=== PATIENT | female | born 1955 | race Caucasian/White ===

== ENCOUNTER → 2021-01-22 | Outpatient (REF) | payer BC ==
[2021-01-22 12:51] LABS: BASO # 0.1 10^3/uL (0.0-0.2); BASO % 0.8 % (0.0-1.0); EOS # 0.3 10^3/uL (0.0-0.5); EOS % 3.2 % (0.0-3.0); HEMATOCRIT 33.9 % (36.0-47.0); HEMOGLOBIN 11.3 g/dl (12.0-15.5); LYMPH # 1.7 10^3/uL (1.5-5.0); LYMPH % 19.1 % (24.0-44.0); MEAN CORPUSCULAR HGB CONC 33.3 g/dl (32.0-36.5); MEAN CORPUSCULAR VOLUME 93.1 fl (80.0-96.0); MONO # 0.9 10^3/uL (0.0-0.8); MONO % 9.5 % (2.0-8.0); NEUTROPHILS # 6.1 10^3/uL (1.5-8.5); NEUTROPHILS % 66.9 % (36.0-66.0); PLATELET COUNT, AUTOMATED 470 10^3/uL (150-450); RED BLOOD COUNT 3.64 10^6/uL (4.00-5.40); WHITE BLOOD COUNT 9.1 10^3/uL (4.0-10.0)
[2021-01-22 14:16] LABS: ALBUMIN 3.8 GM/DL (3.2-5.2); BILIRUBIN,TOTAL 0.5 MG/DL (0.2-1.0); CALCIUM LEVEL 10.1 MG/DL (8.8-10.2); CHOLESTEROL RISK RATIO 2.833 (<5); CREATININE FOR GFR 1.07 MG/DL (0.55-1.30); GLOMERULAR FILTRATION RATE 54.6 (>45); POTASSIUM SERUM 4.5 MEQ/L (3.5-5.1); THYROID STIMULATING HORMONE 0.726 uIU/ML (0.358-3.740); TOTAL 25(OH) VITAMIN D 38.6 NG/ML (30.0-100.0)
== END ==
LOC: M SFHCADAM 11:19
PROVIDERS: ATTEND Physician Assistant Medical
DX: I10 Essential (primary) hypertension (principal)

== ENCOUNTER → 2021-01-26 | Outpatient (REF) | payer BC ==
[2021-01-26 14:23] LABS: ALBUMIN 3.6 GM/DL (3.2-5.2); BILIRUBIN,TOTAL 0.5 MG/DL (0.2-1.0); CALCIUM LEVEL 9.7 MG/DL (8.8-10.2); CHOLESTEROL RISK RATIO 2.986 (<5); CREATININE FOR GFR 1.17 MG/DL (0.55-1.30); GLOMERULAR FILTRATION RATE 49.3 (>45); PERCENT SATURATION 20.6 % (13.2-45.0); POTASSIUM SERUM 4.7 MEQ/L (3.5-5.1); THYROID STIMULATING HORMONE 0.918 uIU/ML (0.358-3.740); TOTAL PROTEIN 6.9 GM/DL (6.4-8.2)
[2021-01-26 14:26] LABS: FOLATE 23.6 NG/ML; TOTAL 25(OH) VITAMIN D 39.5 NG/ML (30.0-100.0)
[2021-01-26 14:27] LABS: BASO # 0.1 10^3/uL (0.0-0.2); BASO % 0.8 % (0.0-1.0); EOS # 0.4 10^3/uL (0.0-0.5); EOS % 4.2 % (0.0-3.0); HEMATOCRIT 33.2 % (36.0-47.0); HEMOGLOBIN 10.9 g/dl (12.0-15.5); LYMPH # 1.7 10^3/uL (1.5-5.0); LYMPH % 20.1 % (24.0-44.0); MEAN CORPUSCULAR HEMOGLOBIN 30.9 pg (27.0-33.0); MEAN CORPUSCULAR HGB CONC 32.8 g/dl (32.0-36.5); MEAN CORPUSCULAR VOLUME 94.1 fl (80.0-96.0); MONO # 0.8 10^3/uL (0.0-0.8); MONO % 9.7 % (2.0-8.0); NEUTROPHILS # 5.4 10^3/uL (1.5-8.5); NEUTROPHILS % 64.7 % (36.0-66.0); PLATELET COUNT, AUTOMATED 454 10^3/uL (150-450); RED BLOOD COUNT 3.53 10^6/uL (4.00-5.40); WHITE BLOOD COUNT 8.4 10^3/uL (4.0-10.0)
[2021-01-26 15:23] LABS: HEMOGLOBIN A1c 5.4 %
== END ==
LOC: M SFHCADAM 10:11
PROVIDERS: ATTEND Physician Assistant Medical
DX: D64.9 Anemia, unspecified (principal); R73.09 Other abnormal glucose

== ENCOUNTER → 2022-07-11 | Outpatient (REF) | payer MEDICARE ==
[2022-07-11 13:15] LABS: BASO # 0.1 10^3/uL (0.0-0.2); BASO % 1.2 % (0.0-1.0); EOS # 0.3 10^3/uL (0.0-0.5); EOS % 3.2 % (0.0-3.0); HEMATOCRIT 39.3 % (36.0-47.0); HEMOGLOBIN 13.5 g/dl (12.0-15.5); LYMPH # 1.9 10^3/uL (1.5-5.0); LYMPH % 21.5 % (24.0-44.0); MEAN CORPUSCULAR HEMOGLOBIN 32.6 pg (27.0-33.0); MEAN CORPUSCULAR HGB CONC 34.4 g/dl (32.0-36.5); MEAN CORPUSCULAR VOLUME 94.9 fl (80.0-96.0); MONO # 0.8 10^3/uL (0.0-0.8); MONO % 8.5 % (2.0-8.0); NEUTROPHILS # 5.7 10^3/uL (1.5-8.5); PLATELET COUNT, AUTOMATED 459 10^3/uL (150-450); RED BLOOD COUNT 4.14 10^6/uL (4.00-5.40); WHITE BLOOD COUNT 8.8 10^3/uL (4.0-10.0)
[2022-07-11 13:35] LABS: ALBUMIN 3.7 G/DL (3.2-5.2); BILIRUBIN,TOTAL 0.6 MG/DL (0.3-1.2); CALCIUM LEVEL 9.7 MG/DL (8.3-10.6); CHOLESTEROL RISK RATIO 2.63 (<5); CREATININE FOR GFR 1.04 MG/DL (0.55-1.30); GLOMERULAR FILTRATION RATE 56.1 (>45); HDL CHOLESTEROL 72.4 MG/DL (>40); NON-HDL-C 118.6 MG/DL; POTASSIUM SERUM 4.4 MMOL/L (3.5-5.1); TOTAL PROTEIN 7.1 G/DL (5.7-8.2)
[2022-07-11 13:36] LABS: THYROID STIMULATING HORMONE 0.67 uIU/ML (0.55-4.78); TOTAL 25(OH) VITAMIN D 80.8 NG/ML (20.0-100.0)
== END ==
LOC: M SFHCADAM 09:13
PROVIDERS: ATTEND Physician Assistant Medical
DX: Z00.00 Encounter for general adult medical examination without abnormal findings (principal); I10 Essential (primary) hypertension

== ENCOUNTER → 2023-01-18 | Outpatient (REF) | payer MEDICARE ==
[2023-01-18 12:47] LABS: CALCIUM LEVEL 9.5 MG/DL (8.3-10.6); CREATININE FOR GFR 1.09 MG/DL (0.55-1.30); GLOMERULAR FILTRATION RATE 53.1 (>45); POTASSIUM SERUM 4.2 MMOL/L (3.5-5.1)
== END ==
LOC: M SFHCADAM 08:58
PROVIDERS: ATTEND Physician Assistant Medical
DX: I10 Essential (primary) hypertension (principal); F41.0 Panic disorder [episodic paroxysmal anxiety]; Z90.5 Acquired absence of kidney

== ENCOUNTER → 2023-09-11 | Outpatient (REF) | payer MEDICARE ==
[2023-09-11 18:32] LABS: CREATININE, URINE 30.7 MG/DL
[2023-09-11 18:34] LABS: MALB URINE SIEMENS < 3.0 MG/L; MAU/CREAT RATIO 9.7 MCG/MG (0.0-30.0)
[2023-09-11 18:36] LABS: THYROID STIMULATING HORMONE 0.554 uIU/ML (0.55-4.78); TOTAL 25(OH) VITAMIN D 65.8 NG/ML (20.0-100.0)
[2023-09-11 18:37] LABS: ALBUMIN 3.3 G/DL (3.2-5.2); ALKALINE PHOSPHATASE 80 U/L (46-116); ALT/SGPT 27 U/L (7.0-40); AST/SGOT 24 U/L (<34); BILIRUBIN,TOTAL 0.5 MG/DL (0.3-1.2); BLOOD UREA NITROGEN 12 MG/DL (9-23); CALCIUM LEVEL 9.4 MG/DL (8.3-10.6); CARBON DIOXIDE LEVEL 27 MMOL/L (20-31); CHLORIDE LEVEL 95 MMOL/L (98-107); CHOLESTEROL LEVEL 184 MG/DL (<200); CREATININE FOR GFR 0.92 MG/DL (0.55-1.30); GLOMERULAR FILTRATION RATE > 60.0 (>45); GLUCOSE, FASTING 84 MG/DL (74-106); HDL CHOLESTEROL 76.6 MG/DL (>40); LDL CHOLESTEROL 72.6 MG/DL (<100); NON-HDL-C 107.4 MG/DL; POTASSIUM SERUM 4.1 MMOL/L (3.5-5.1); SODIUM LEVEL 128 MMOL/L (136-145); TRIGLYCERIDES LEVEL 174 MG/DL (<150)
[2023-09-11 18:45] LABS: HEMOGLOBIN A1c 5.4 % (4.0-6.0)
== END ==
LOC: M SFHCADAM 11:24
PROVIDERS: ATTEND Physician Assistant Medical
DX: I10 Essential (primary) hypertension (principal); F41.0 Panic disorder [episodic paroxysmal anxiety]; Z90.5 Acquired absence of kidney; Z79.899 Other long term (current) drug therapy

== ENCOUNTER → 2023-10-03 | Outpatient (REF) | payer MEDICARE ==
[2023-10-03 18:54] LABS: BASO # 0.1 10^3/uL (0.0-0.2); BASO % 1.2 % (0.0-1.0); EOS # 0.2 10^3/uL (0.0-0.5); EOS % 1.9 % (0.0-3.0); HEMATOCRIT 37.7 % (36.0-47.0); HEMOGLOBIN 12.9 g/dl (12.0-15.5); LYMPH # 2.3 10^3/uL (1.5-5.0); LYMPH % 20.5 % (24.0-44.0); MEAN CORPUSCULAR HGB CONC 34.2 g/dl (32.0-36.5); MEAN CORPUSCULAR VOLUME 99.5 fl (80.0-96.0); MONO % 9.4 % (2.0-8.0); NEUTROPHILS # 7.3 10^3/uL (1.5-8.5); NEUTROPHILS % 66.1 % (36.0-66.0); PLATELET COUNT, AUTOMATED 422 10^3/uL (150-450); RED BLOOD COUNT 3.79 10^6/uL (4.00-5.40)
[2023-10-03 19:22] LABS: BILIRUBIN,TOTAL 0.6 MG/DL (0.3-1.2); CREATININE FOR GFR 0.98 MG/DL (0.55-1.30); GLOMERULAR FILTRATION RATE 59.9 (>45); POTASSIUM SERUM 4.2 MMOL/L (3.5-5.1); TOTAL PROTEIN 6.9 G/DL (5.7-8.2)
== END ==
LOC: M SFHCADAM 15:08
PROVIDERS: ATTEND Physician Assistant Medical
DX: I10 Essential (primary) hypertension (principal); E87.1 Hypo-osmolality and hyponatremia; Z90.5 Acquired absence of kidney

== ENCOUNTER → 2023-10-11 | Outpatient (CLI) | payer MEDICARE | LOC: M RAD 14:11 | PROVIDERS: ATTEND Physician Assistant Medical | DX: Z90.5 Acquired absence of kidney (principal) ==

== ENCOUNTER 2024-01-09 21:29 | Emergency (ER) | payer MEDICARE ==
[~2024-01-09] VITALS: Ht 157.5 cm; Wt 76.0 kg
[2024-01-09 21:32] VITALS: TEMP 97.5
[2024-01-09 23:10] VITALS: BP 140/60; O2SAT 98
[2024-01-09 23:24] LABS: BASO # 0.1 10^3/uL (0.0-0.2); BASO % 0.9 % (0.0-1.0); EOS # 0.4 10^3/uL (0.0-0.5); EOS % 4.1 % (0.0-3.0); HEMATOCRIT 36.1 % (36.0-47.0); HEMOGLOBIN 12.5 g/dl (12.0-15.5); LYMPH # 2.7 10^3/uL (1.5-5.0); MEAN CORPUSCULAR HEMOGLOBIN 33.7 pg (27.0-33.0); MEAN CORPUSCULAR HGB CONC 34.6 g/dl (32.0-36.5); MEAN CORPUSCULAR VOLUME 97.3 fl (80.0-96.0); MONO % 9.6 % (2.0-8.0); NEUTROPHILS # 6.3 10^3/uL (1.5-8.5); NEUTROPHILS % 59.4 % (36.0-66.0); PLATELET COUNT, AUTOMATED 326 10^3/uL (150-450); RED BLOOD COUNT 3.71 10^6/uL (4.00-5.40); WHITE BLOOD COUNT 10.7 10^3/uL (4.0-10.0)
[2024-01-09 23:44] LABS: C REACTIVE PROTEIN QUANTITATIV 0.9 MG/DL (<1.0)
[2024-01-09 23:46] LABS: ALBUMIN 3.3 G/DL (3.2-5.2); BILIRUBIN,TOTAL 0.3 MG/DL (0.3-1.2); CALCIUM LEVEL 9.7 MG/DL (8.3-10.6); CREATININE FOR GFR 1.09 MG/DL (0.55-1.30); POTASSIUM SERUM 4.2 MMOL/L (3.5-5.1); TOTAL PROTEIN 6.3 G/DL (5.7-8.2)
[2024-01-09 23:52] LABS: ERYTHROCYTE SEDIMENTATION RATE 20 mm/hr (0-30)
[2024-01-10] MEDS: PIPERACILLIN/TAZOBACTAM SOD 4.5 GM in D5W MINI-BAG PLUS 50 ML IV ONE (00:35)
[2024-01-10] MEDS ORDERED: AUGM500T34 PO (02:46)
[2024-01-11] MEDS ORDERED: SERT25TA21 PO (14:25)
[2024-01-11] MEDS ORDERED: LABE20TAB PO (14:25)
[2024-01-11] MEDS ORDERED: LISI20TA33 PO (14:25)
[2024-01-11] MEDS ORDERED: ACET-683 PO (18:58)
[2024-01-11] MEDS ORDERED: AMOX500T2 PO (18:58)
== END 2024-01-10 02:58 | disposition home or self-care (01) ==
LOC: M ED 21:29
DX: L03.213 Periorbital cellulitis (principal); J01.90 Acute sinusitis, unspecified; Z79.2 Long term (current) use of antibiotics; Z88.8 Allergy status to other drugs, medicaments and biological substances
CPT/HCPCS: 80053; 83605; 85025; 85652; 86140; 87040; 96365; 96366; 99284; J2543

== ENCOUNTER → 2024-01-09 | Outpatient (CLI) | payer MEDICARE ==
[~2024-01-09] MED LIST: ACET-683 PO; AMOX500T2 PO; AUGM500T34 PO; ISOVUE-370 76% 100ML VIAL As Ordered ONE; LABE20TAB PO; LINE1TAB PO; LISI20TA33 PO; SERT25TA21 PO
[2024-01-09 17:22] LABS: BASO # 0.1 10^3/uL (0.0-0.2); BASO % 1.1 % (0.0-1.0); EOS # 0.4 10^3/uL (0.0-0.5); EOS % 3.3 % (0.0-3.0); HEMOGLOBIN 12.5 g/dl (12.0-15.5); LYMPH # 2.3 10^3/uL (1.5-5.0); LYMPH % 19.4 % (24.0-44.0); MEAN CORPUSCULAR HEMOGLOBIN 34.5 pg (27.0-33.0); MEAN CORPUSCULAR HGB CONC 34.7 g/dl (32.0-36.5); MEAN CORPUSCULAR VOLUME 99.4 fl (80.0-96.0); MONO # 1.1 10^3/uL (0.0-0.8); MONO % 9.2 % (2.0-8.0); NEUTROPHILS # 7.9 10^3/uL (1.5-8.5); NEUTROPHILS % 65.8 % (36.0-66.0); PLATELET COUNT, AUTOMATED 344 10^3/uL (150-450); RED BLOOD COUNT 3.62 10^6/uL (4.00-5.40); WHITE BLOOD COUNT 12.1 10^3/uL (4.0-10.0)
[2024-01-09 17:30] LABS: ERYTHROCYTE SEDIMENTATION RATE 25 mm/hr (0-30)
[2024-01-09 17:40] LABS: C REACTIVE PROTEIN QUANTITATIV 0.9 MG/DL (<1.0)
[2024-01-09 17:42] LABS: ALBUMIN 3.4 G/DL (3.2-5.2); BILIRUBIN,TOTAL 0.3 MG/DL (0.3-1.2); CALCIUM LEVEL 9.7 MG/DL (8.3-10.6); GLOMERULAR FILTRATION RATE 58.5 (>45); POTASSIUM SERUM 4.7 MMOL/L (3.5-5.1); TOTAL PROTEIN 6.3 G/DL (5.7-8.2)
== END ==
LOC: M RAD 15:46
PROVIDERS: ATTEND Family Medicine
DX: R22.0 Localized swelling, mass and lump, head (principal); Z98.890 Other specified postprocedural states

== ENCOUNTER 2024-01-11 14:14 | Inpatient (IN) | payer MEDICARE ==
[~2024-01-11] VITALS: Ht 157.5 cm; Wt 74.8 kg
[~2024-01-11 14:14] MED LIST changes: -ACET-683 PO; -AMOX500T2 PO; -ISOVUE-370 76% 100ML VIAL As Ordered ONE; -LABE20TAB PO; -LINE1TAB PO; -LISI20TA33 PO; -SERT25TA21 PO
[2024-01-11] MEDS ORDERED: SERT25TA21 PO (14:25)
[2024-01-11] MEDS ORDERED: LISI20TA33 PO (14:25)
[2024-01-11] MEDS ORDERED: LABE20TAB PO (14:25)
[2024-01-11 16:34] LABS: BASO # 0.1 10^3/uL (0.0-0.2); BASO % 0.8 % (0.0-1.0); EOS # 0.4 10^3/uL (0.0-0.5); EOS % 3.2 % (0.0-3.0); HEMATOCRIT 37.8 % (36.0-47.0); HEMOGLOBIN 13.2 g/dl (12.0-15.5); LYMPH # 2.4 10^3/uL (1.5-5.0); LYMPH % 17.1 % (24.0-44.0); MEAN CORPUSCULAR HEMOGLOBIN 34.6 pg (27.0-33.0); MEAN CORPUSCULAR HGB CONC 34.9 g/dl (32.0-36.5); MEAN CORPUSCULAR VOLUME 99.2 fl (80.0-96.0); MONO # 1.2 10^3/uL (0.0-0.8); MONO % 8.8 % (2.0-8.0); NEUTROPHILS # 9.6 10^3/uL (1.5-8.5); NEUTROPHILS % 69.2 % (36.0-66.0); PLATELET COUNT, AUTOMATED 373 10^3/uL (150-450); RED BLOOD COUNT 3.81 10^6/uL (4.00-5.40); WHITE BLOOD COUNT 13.9 10^3/uL (4.0-10.0)
[2024-01-11 16:40] LABS: ERYTHROCYTE SEDIMENTATION RATE 29 mm/hr (0-30)
[2024-01-11] MEDS: PIPERACILLIN IV ONE (17:22)
[2024-01-11] MEDS: MINI IV ONE (17:22)
[2024-01-11] MEDS: dexAMETHasone 20MG/5ML VIAL IV ONE (17:22)
[2024-01-11] MEDS: ADV IV ONE (17:22)
[2024-01-11] MEDS: TAZOBACTAM SOD IV ONE (17:22)
[2024-01-11] MEDS: DEXTROSE 5% IV ONE (17:22)
[2024-01-11] MEDS ORDERED: ACETAMINOPHEN 325 MG TAB PO PRN (17:40)
[2024-01-11] MEDS ORDERED: VANCOMYCIN/WATER FOR INJ 1,000 MG in IV 1 EA IV SCH (17:40)
[2024-01-11] MEDS: VANCOMYCIN 1,500 MG/300 ML IV BAG *LOAD IV ONE (18:48)
[2024-01-11] MEDS ORDERED: AMOX500T2 PO (18:58)
[2024-01-11] MEDS ORDERED: ACET-683 PO (18:58)
[2024-01-11] MEDS ORDERED: HOME MED LIST COMPLETE! XX SCH (19:00)
[2024-01-11 21:34] VITALS: BP 149/82; TEMP 97.9; O2SAT 97
[2024-01-11] MEDS: TAZOBACTAM SOD IV SCH (22:06)
[2024-01-11] MEDS: MINI IV SCH (22:06)
[2024-01-11] MEDS: DEXTROSE 5% IV SCH (22:06)
[2024-01-11] MEDS: ADV IV SCH (22:06)
[2024-01-11] MEDS: PIPERACILLIN IV SCH (22:06)
[2024-01-12 04:00] VITALS: BP 136/63; TEMP 97.2; O2SAT 95
[2024-01-12 05:46] LABS: BASO % 0.3 % (0.0-1.0); HEMATOCRIT 38.2 % (36.0-47.0); HEMOGLOBIN 13.2 g/dl (12.0-15.5); LYMPH # 0.8 10^3/uL (1.5-5.0); LYMPH % 6.7 % (24.0-44.0); MEAN CORPUSCULAR HEMOGLOBIN 33.7 pg (27.0-33.0); MEAN CORPUSCULAR HGB CONC 34.6 g/dl (32.0-36.5); MEAN CORPUSCULAR VOLUME 97.4 fl (80.0-96.0); MONO # 0.2 10^3/uL (0.0-0.8); MONO % 1.3 % (2.0-8.0); NEUTROPHILS % 89.8 % (36.0-66.0); PLATELET COUNT, AUTOMATED 359 10^3/uL (150-450); RED BLOOD COUNT 3.92 10^6/uL (4.00-5.40); WHITE BLOOD COUNT 12.2 10^3/uL (4.0-10.0)
[2024-01-12 06:17] LABS: BLOOD UREA NITROGEN 10 MG/DL (9-23); CALCIUM LEVEL 9.9 MG/DL (8.3-10.6); CARBON DIOXIDE LEVEL 19 MMOL/L (20-31); CHLORIDE LEVEL 107 MMOL/L (98-107); CREATININE FOR GFR 0.92 MG/DL (0.55-1.30); GLOMERULAR FILTRATION RATE > 60.0 (>45); GLUCOSE, FASTING 122 MG/DL (74-106); POTASSIUM SERUM 4.9 MMOL/L (3.5-5.1); SODIUM LEVEL 135 MMOL/L (136-145)
[2024-01-12 07:54] LABS: VANCOMYCIN RANDOM 14.3 UG/ML
[2024-01-12] MEDS: VANCOMYCIN 750MG/150 ML IV BAG IV SCH (09:27)
[2024-01-12 12:00] VITALS: BP 148/70; TEMP 97.3; O2SAT 99
[2024-01-12] MEDS ORDERED: VANCOMYCIN 1,000MG/200 ML IV BAG IV SCH (13:00)
[2024-01-12 20:00] VITALS: BP 122/77; TEMP 97.5; O2SAT 99
[2024-01-13 04:00] VITALS: BP 132/76; TEMP 97.3; O2SAT 98
[2024-01-13 07:13] LABS: BASO # 0.1 10^3/uL (0.0-0.2); EOS # 0.2 10^3/uL (0.0-0.5); EOS % 1.7 % (0.0-3.0); HEMATOCRIT 37.4 % (36.0-47.0); HEMOGLOBIN 12.8 g/dl (12.0-15.5); LYMPH # 2.3 10^3/uL (1.5-5.0); LYMPH % 19.7 % (24.0-44.0); MEAN CORPUSCULAR HGB CONC 34.2 g/dl (32.0-36.5); MEAN CORPUSCULAR VOLUME 99.5 fl (80.0-96.0); MONO # 0.9 10^3/uL (0.0-0.8); MONO % 8.1 % (2.0-8.0); NEUTROPHILS % 68.7 % (36.0-66.0); PLATELET COUNT, AUTOMATED 310 10^3/uL (150-450); RED BLOOD COUNT 3.76 10^6/uL (4.00-5.40); WHITE BLOOD COUNT 11.6 10^3/uL (4.0-10.0)
[2024-01-13 07:35] LABS: VANCOMYCIN LEVEL TROUGH 15.2 UG/ML (10.0-20.0)
[2024-01-13 07:36] LABS: CALCIUM LEVEL 9.4 MG/DL (8.3-10.6); CREATININE FOR GFR 1.09 MG/DL (0.55-1.30)
[2024-01-13] MEDS: LACTOBACILLUS ACIDOPHILUS CAP (BACID) PO SCH (08:57)
[2024-01-13 12:00] VITALS: BP 157/87; TEMP 97.9; O2SAT 99
[2024-01-13 20:30] VITALS: BP 141/74; TEMP 97.7; O2SAT 100
[2024-01-13] MEDS: PINK BISMUTH SUSP 524MG/30ML ORAL SYRINGE PO ONE (21:42)
[2024-01-14 04:00] VITALS: BP 143/80; TEMP 98.2; O2SAT 99
[2024-01-14 06:02] LABS: BASO # 0.1 10^3/uL (0.0-0.2); BASO % 1.4 % (0.0-1.0); EOS # 0.4 10^3/uL (0.0-0.5); HEMATOCRIT 35.9 % (36.0-47.0); HEMOGLOBIN 12.3 g/dl (12.0-15.5); LYMPH # 1.8 10^3/uL (1.5-5.0); LYMPH % 19.8 % (24.0-44.0); MEAN CORPUSCULAR HEMOGLOBIN 33.9 pg (27.0-33.0); MEAN CORPUSCULAR HGB CONC 34.3 g/dl (32.0-36.5); MEAN CORPUSCULAR VOLUME 98.9 fl (80.0-96.0); MONO # 0.9 10^3/uL (0.0-0.8); MONO % 10.2 % (2.0-8.0); NEUTROPHILS # 5.7 10^3/uL (1.5-8.5); NEUTROPHILS % 63.7 % (36.0-66.0); PLATELET COUNT, AUTOMATED 302 10^3/uL (150-450); RED BLOOD COUNT 3.63 10^6/uL (4.00-5.40); WHITE BLOOD COUNT 8.9 10^3/uL (4.0-10.0)
[2024-01-14 06:31] LABS: CALCIUM LEVEL 9.5 MG/DL (8.3-10.6); CREATININE FOR GFR 1.08 MG/DL (0.55-1.30); GLOMERULAR FILTRATION RATE 53.5 (>45)
[2024-01-14] MEDS ORDERED: LOPERAMIDE 2 MG CAPLET PO PRN (07:35)
[2024-01-14] MEDS ORDERED: LINE1TAB PO (10:37)
[2024-01-14] MEDS ORDERED: AMOX500T2 PO (10:41)
[2024-01-14] MEDS: VANCOMYCIN 750MG/150 ML IV BAG IV SCH (11:30)
[2024-01-14 12:00] VITALS: BP 148/86; TEMP 97.7; O2SAT 97
== END 2024-01-14 13:30 | disposition home or self-care (01) | DRG 603 ==
LOC: M ED 14:14 → M ED INP 17:37 → M MSPAV 21:35
PROVIDERS: ADMIT Internal Medicine Nephrology; ATTEND Internal Medicine Nephrology
DX: L03.213 Periorbital cellulitis (principal); I10 Essential (primary) hypertension; Z88.8 Allergy status to other drugs, medicaments and biological substances; Z79.899 Other long term (current) drug therapy; F32.9 Major depressive disorder, single episode, unspecified; Z87.891 Personal history of nicotine dependence; J32.0 Chronic maxillary sinusitis

== ENCOUNTER → 2024-06-05 | Outpatient (CLI) | payer MEDICARE ==
[~2024-06-05] MED LIST changes: +ACET-683 PO; +AMOX500T2 PO; +LABE20TAB PO; +LINE1TAB PO; +LISI20TA33 PO; +SERT25TA21 PO
== END ==
LOC: M ADAMS 12:59
PROVIDERS: ATTEND Physician Assistant Medical
DX: M54.42 Lumbago with sciatica, left side (principal)

== ENCOUNTER → 2024-12-12 | Outpatient (REF) | payer MEDICARE ==
[2024-12-12 14:04] LABS: BASO # 0.1 10^3/uL (0.0-0.2); BASO % 1.6 % (0.0-1.0); EOS # 0.4 10^3/uL (0.0-0.5); EOS % 4.3 % (0.0-3.0); LYMPH # 2.2 10^3/uL (1.5-5.0); LYMPH % 27.1 % (24.0-44.0); MONO # 0.9 10^3/uL (0.0-0.8); MONO % 10.5 % (2.0-8.0); NEUTROPHILS # 4.5 10^3/uL (1.5-8.5); NEUTROPHILS % 56.1 % (36.0-66.0); PLATELET COUNT, AUTOMATED 345 10^3/uL (150-450)
[2024-12-12 14:07] LABS: ALT/SGPT 23.0 U/L (7.0-40); AST/SGOT 20.0 U/L (<34); CALCIUM LEVEL 9.7 MG/DL (8.3-10.6); CARBON DIOXIDE LEVEL 28.0 MMOL/L (20-31); CHLORIDE LEVEL 104.0 MMOL/L (98-107); CHOLESTEROL LEVEL 241.0 MG/DL (<200); CHOLESTEROL RISK RATIO 2.34 (<5); CREATININE FOR GFR 1.01 MG/DL (0.55-1.30); FREE T4 1.11 NG/DL (0.89-1.76); GLOMERULAR FILTRATION RATE 59.9 (>39); LDL CHOLESTEROL 121.1 MG/DL (<100); NON-HDL-C 138.3 MG/DL; POTASSIUM SERUM 5.1 MMOL/L (3.5-5.1); SODIUM LEVEL 136.0 MMOL/L (136-145); TRIGLYCERIDES LEVEL 86.0 MG/DL (<150)
[2024-12-12 15:09] LABS: ESTIMATED AVERAGE GLUCOSE 97.0 MG/DL (60-110)
== END ==
LOC: M SFHCADAM 09:11
PROVIDERS: ATTEND Physician Assistant Medical
DX: E87.1 Hypo-osmolality and hyponatremia (principal); I10 Essential (primary) hypertension; F32.1 Major depressive disorder, single episode, moderate; Z90.5 Acquired absence of kidney; Z79.899 Other long term (current) drug therapy